=== PATIENT | male | born 1990 | race Two or more races ===

== ENCOUNTER 2016-11-08 20:23 | Emergency (ER) | payer OTHER ==
[~2016-11-08] VITALS: Ht 185.4 cm; Wt 100.0 kg
--- NOTE | 2016-11-08 20:36 | ED.REPORT ---
HPI-Psychiatric Illness Date of Service November 08, 2016 ED Provider: Rui Vidal MD Patient is a 26 year old male with a history of previous suicide attempt who presents to the ED via [employer] with suicidal ideation that began earlier this evening. [place] and engaged in a 2+ hour stand off with the police at the scene. Police were eventually able to convince the patient to come down from then bridge. Patient reports that he "just had a rough day". He has never been previously evaluated by a court specialist. He does not currently have any medications. Patient is voluntary and agrees to speak with the FARM TRACTOR OPERATOR in the morning. Nursing Notes Stated Complaint: SUICIDAL IDEATION Nursing Notes Reviewed: Yes Allergies: Coded Allergies: No Known Allergies (Unverified , 11/08/16) No Active Prescriptions or Reported Meds General Time Seen by MD: 20:35 Chief Complaint Suicidal ideation Hx Obtained From: Patient Arrived By: Police Onset Occurred: Just prior to arrival Symptom Duration: Since onset Progression Since Onset: Unchanged Associated with: Reports: Depression Pertinent Negative: Pt denies other symptoms Recent Healthcare: No recent doctor visit, No recent hospitalization Risk-Psychiatric Illness Suicide Risk Stratification Suicide Risk Factors - Adult: : Previous attempt RF Statements: Risk factors reviewed Past Medical History Past Medical History Previous suicide attempt - Pt reports attempting to hang himself Past Surgical History None reported. Smoking History Unknown if Ever Smoker Social History Previous suicide attempt Alcohol Use: Denies alcohol use Drug Use: THC Other Social History: From out of town ([place] ) Occupation [employer] Ambulatory Status Independent Review of Systems Constitutional: Denies: Chills, Fever Respiratory: Denies: Shortness of breath GI: Denies: Nausea, Vomiting Psychiatric: Reports: Depression, Suicidal ideation Complete sys rev & neg: except as marked. Physical Exam Initial Vital Signs Vital Signs (First) Date Time Temp Pulse Resp B/P Pulse Ox O2 Delivery O2 Flow Rate FiO2 11/08/16 20:51 36.5 57 16 133/87 100 Room Air Initial VS: Reviewed Head / Eyes: Atraumatic, Normocephalic, PERRL Neck: Supple, Non-tender, Full range of motion Extremities: Vascular intact, Neuro intact, No swelling, No tenderness Skin: Warm, Dry, No cyanosis General/Constitutional: Awake, Alert Neurologic: Oriented X3, Speech NL, No motor deficits, No sensory deficits, CN II - XII intact Psychiatric: Not homicidal Abnormal Mood/Affect: Positive: Depressed, Flat affect Abnormal Thinking / Perception: Positive: Suicidal, with plan PSYCH: Not repsonding to internal stimuli Linear thoughts Respiratory / Chest: Atraumatic, Breath sounds NL, Breath sounds = bilat, No respiratory distress Cardiovascular: Heart rate NL, Regular rhythm, Heart sounds NL, No gallop, No murmurs, No rubs, Peripheral circulation NL Abdomen: Atraumatic, Soft Interpretation & Diagnostics Lab Results Interpretation Result Diagram: 11/08/16 2100 11/08/16 2100 Test 11/08/16 21:00 White Blood Count 8.1th/mm3 (3.8-10.1) Red Blood Count 4.95mil/mm3 (4.40-5.80) Hemoglobin 13.9g/dL (13.8-17.2) Hematocrit 41.1% (41.0-50.0) Mean Corpuscular Volume 83.0fL (81-100) Mean Corpuscular Hemoglobin 28.1pg (27.0-35.0) Mean Corpuscular Hemoglobin Concent 33.8% (32.0-37.0) Red Cell Distribution Width 13.8% (12.3-15.4) Platelet Count 146bil/L (150-400) Neutrophils (%) (Auto) 72.9% (40-74) Lymphocytes (%) (Auto) 21.3% (14-46) Monocytes (%) (Auto) 5.3% (4-12) Eosinophils (%) (Auto) 0.2% (0-5) Basophils (%) (Auto) 0.2% (0-3) Hold Urine Received (Received) Sodium Level 141mEq/L (134-144) Potassium Level 5.0mEq/L (3.5-5.2) Chloride Level 103mEq/L (97-108) Carbon Dioxide Level 25mmol/L (18-29) Blood Urea Nitrogen 15mg/dL (6-20) Creatinine 1.09mg/dL (0.76-1.27) Estimat Glomerular Filtration Rate 87mL/min (>59) Glucose Level 103mg/dL (60-99) Calcium Level 10.1mg/dL (8.5-10.1) Total Bilirubin 0.5mg/dL (0.0-1.2) Aspartate Amino Transf (AST/SGOT) 15U/L (0-50) Alanine Aminotransferase (ALT/SGPT) 18U/L (0-44) Alkaline Phosphatase 169U/L (25-150) Total Protein 8.1g/dL (6.4-8.4) Albumin 4.7g/dL (3.4-5.0) Thyroid Stimulating Hormone (TSH) 0.943uIU/mL (0.450-4.500) Hold Jeffers Top Tube Received (Received) Re-Eval/Medical Decision Med Decision/Clinical Course Patient is a 26 year old male with a history of previous suicide attempt who presents to the ED via [employer] with suicidal ideation that began earlier this evening. [place] to [place] and engaged in a 2+ hour stand off with the police at the scene. Police were eventually able to convince the patient to come down from then bridge. Patient reports that he "just had a rough day". He has never been previously evaluated by a court specialist. He does not currently have any medications. Patient is voluntary and agrees to speak with the FARM TRACTOR OPERATOR in the morning for potential admission. Here in the emergency department the patient is quite flat in his affect, reports ongoing suicidal ideation but states that he would like to get help. Labs notable as below: Positive TCH (within normal limits) CMP and CBC unremarkable I feel that the patient is high risk for suicide. At this time he is voluntary though if the patient were to want to leave based on my conversation with him I would likely recommend [facility] evaluation. Patient was signed out to oncoming physician with plan for further social worker clinical evaluation in the morning and potential admission. Re-Evaluation/Progress : Time of Eval: 23:12 Patient Status: Condition improved Re-Evaluation/Progress Note: Patient is resting comfortably. Counseled Regarding: Diagnosis, Lab results Discharge & Departure Shift Change Sign-Out Patient Care Transferred: Yes Discussed Complaint(s): Yes Laboratory Evaluation: Lab evaluation discussed Response to Therapy: Improved Additonal Information: Dr. Bermudez Impression: Primary Impression: Suicidal ideation Discharge Condition All VS Reviewed: Yes Condition: Stable Care Transferred to: Dr. Bermudez Care Transferred at: 00:00 Scribe Attestation Portions of this note were transcribed by Mireille Gibbs. I, Dr. Vidal personally performed the history, physical exam and medical decision-making; I reviewed and confirmed the accuracy of the information in the transcribed note. Signed by: Navin Hogan, 11/08/16 2327. Rui Vidal MD November 08, 2016 20:36 MIREILLE GIBBS November 08, 2016 21:44
[2016-11-08 20:51] VITALS: BP 133/87; PULSE 57; RESP 16; O2SAT 100
[2016-11-08 21:07] LABS: BASOPHILS % (AUTO) 0.2 % (0-3); EOSINOPHILS % (AUTO) 0.2 % (0-5); MONOCYTES % (AUTO) 5.3 % (4-12); Mean Corpuscular Hemoglobin 28.1 pg (27.0-35.0); NEUTROPHILS % (AUTO) 72.9 % (40-74); Platelet Count 146 bil/L (150-400)
[2016-11-09 00:36] VITALS: BP 102/58; PULSE 56; RESP 18; O2SAT 99
[2016-11-09 05:51] VITALS: BP 116/65; PULSE 71; RESP 16; O2SAT 99
--- NOTE | 2016-11-09 12:39 | DRSVH ---
PROCEDURE: CT BRAIN WITHOUT CONTRAST ([id number]) INDICATIONS: altered mental status TECHNIQUE: Noncontrast 4.5 mm thick angled axial sections acquired from the foramen magnum to the vertex, with c oronal reformats. COMPARISON: None. FINDINGS: Image quality: Diagnostic. Brain: There is no acute intra-axial or extra-axial hemorrhage. No extra-axial fluid collection is i dentified. There is no midline shift or mass effect. The orbits are grossly unremarkable. No large areas of diffusely decreased attenuation are evident within the brain to suggest diffuse cer ebral edema. No focal parenchymal abnormality is identified. The ventricles and cortical sulci are age-appropriate. However, incidental note is made of cavum sep linda pellucidum et vergae, an anatomic variant. Bones: Calvarium and visualized facial bones are grossly intact. The imaged paranasal sinuses and m astoid air cells are clear. IMPRESSION: Unremarkable head CT. No acute intracranial hemorrhage. Dictated by: Mark Flaherty M.D. on 11/09/2016 at 11:36 Approved by: Mark Flaherty M.D. on 11/09/2016 at 11:38
[2016-11-09 14:25] VITALS: BP 132/67; PULSE 72; RESP 16; O2SAT 98
[2016-11-09 14:48] VITALS: BP 132/67; PULSE 72; RESP 16; O2SAT 98
== END 2016-11-09 14:49 | disposition home or self-care (01) ==
LOC: EDBD 20:23 → SED 20:23
DX: R45.851 Suicidal ideations (principal); R41.3 Other amnesia; F44.9 Dissociative and conversion disorder, unspecified